=== PATIENT | female | born 1930 | race Caucasian/White ===

== ENCOUNTER 2018-05-14 16:04 | Inpatient (IN) | payer MEDICARE, OTHER ==
[2018-05-14] MEDS ORDERED: ACETAMINOPHEN 325 MG TAB (18:09)
[2018-05-14 18:22] LABS: ABNORMAL IP MESSAGE 1; HEMATOCRIT 22.4 % (37.0-47.0); MEAN CORPUSCULAR HGB CONC 29.5 g/dl (32.0-37.0); MEAN PLATELET VOLUME 9.9 fl (7.4-10.4); PLATELET COUNT 469 10^3/UL (140-415); RED BLOOD COUNT 2.87 10^6/ul (4.20-5.40); RETICULOCYTE COUNT # 0.052 X10^6 (0.020-0.110); RETICULOCYTE COUNT % 1.8 % (0.5-1.5); RETICULOCYTE RBC 2.87
[2018-05-14 18:34] LABS: ADD MAN DIFF? YES; HEMOGLOBIN 6.6 g/dl (12.0-16.0); POSITIVE DIFF @See below
[2018-05-14 18:41] LABS: IRON 15 ug/dl (35-150)
[2018-05-14 18:42] LABS: ALANINE AMINOTRANSFERASE 11 IU/L (13-69); ALBUMIN 4.6 g/dl (3.3-4.9); ALBUMIN/GLOBULIN RATIO 1.31; ALKALINE PHOSPHATASE 158 IU/L (42-121); ANION GAP 9 (5-13); ASPARTATE AMINO TRANSFERASE 25 IU/L (15-46); BILIRUBIN,INDIRECT 0.2 mg/dl (0-1.1); BILIRUBIN,TOTAL 0.2 mg/dl (0.2-1.3); BLOOD UREA NITROGEN 26 mg/dl (7-20); CALCIUM 9.5 mg/dl (8.4-10.2); CARBON DIOXIDE 29 mmol/L (21-31); CHLORIDE 104 mmol/L (97-110); CREATININE 1.23 mg/dl (0.44-1.00); GLUCOSE 100 mg/dl (70-220); INR 0.88; LACTATE DEHYDROGENASE 533 IU/L (313-618); POTASSIUM 4.3 mmol/L (3.5-5.1); PT RATIO 0.9; SODIUM 142 mmol/L (135-144); TOTAL PROTEIN 8.1 g/dl (6.1-8.1); URIC ACID 8.3 mg/dl (3.1-7.9)
[2018-05-14 18:43] LABS: PARTIAL THROMBOPLASTIN TIME 37.1 Sec (23.0-35.0)
[2018-05-14 18:50] LABS: % IRON SATURATION 3 % SAT (22-52); TOTAL IRON BINDING CAPACITY 507 ug/dl (241-421)
[2018-05-14] MEDS: ACETAMINOPHEN 325 MG TAB PO ×2 (18:50→21:14)
[2018-05-14 19:24] LABS: FERRITIN 6.2 ng/ml (11.1-264.0)
[2018-05-14 19:25] LABS: ANISOCYTOSIS 2+ (0-0); EOSINOPHILS % (M) 3 % (0-7); GIANT THROMBO% (M) 3 % (0-0); HYPOCHROMASIA 3+ (0-0); LYMPHOCYTES #M 1.1 10^3/ul (0.8-2.9); LYMPHOCYTES % (M) 17 % (15-51); MICROCYTOSIS 2+ (0-0); MONOCYTE #M 0.1 10^3/ul (0.3-0.9); MONOCYTES % (M) 2 % (0-11); PLATELET ESTIMATE NORMAL; POIKILOCYTOSIS 3+ (0-0); POLYCHROMASIA 2+ (0-0); SEGMENTED NEUTROPHILS (M) % 78 % (39-77); SMUDGE%M 3 % (0-0)
[2018-05-14 19:27] LABS: IMMUNOGLOBULIN A 239 mg/dl (70-400); IMMUNOGLOBULIN G 966 mg/dl (700-1600); IMMUNOGLOBULIN M 125 mg/dl (40-230)
[2018-05-14 20:56] LABS: ERYTHROCYTE SEDIMENTATION RATE 65 mm/Hr (0-30)
[2018-05-14] MEDS: DIPHENHYDRAMINE 25 MG CAP PO (21:13)
[2018-05-14] MEDS: ATORVASTATIN 40 MG TAB PO (21:14)
[2018-05-14] MEDS: LISINOPRIL 10 MG TAB PO (21:18)
[2018-05-15 00:46] LABS: IMMEDIATE SPIN CROSSMATCH 1 2
[2018-05-15] MEDS: PANTOPRAZOLE 40 MG INJ IV ×2 (05:55→17:12)
[2018-05-15 06:16] LABS: PROTEIN, TOTAL 7.4 g/dL (6.1-8.1)
[2018-05-15 06:21] LABS: ADD MAN DIFF? NO
[2018-05-15 06:30] LABS: BASOPHIL # 0.1 10^3/ul (0.0-0.1); BASOPHILS % 0.7 % (0.0-2.0); EOSINOPHILS # 0.1 10^3/ul (0.0-0.5); EOSINOPHILS % 1.7 % (0.0-7.0); HEMATOCRIT 27.1 % (37.0-47.0); HEMOGLOBIN 8.3 g/dl (12.0-16.0); LYMPHOCYTES # 2.4 10^3/ul (0.8-2.9); LYMPHOCYTES % 31.1 % (15.0-51.0); MEAN CORPUSCULAR HEMOGLOBIN 24.9 pg (29.0-33.0); MEAN CORPUSCULAR HGB CONC 30.6 g/dl (32.0-37.0); MEAN CORPUSCULAR VOLUME 81.4 fl (82.0-101.0); MEAN PLATELET VOLUME 9.8 fl (7.4-10.4); MONOCYTE # 0.8 10^3/ul (0.3-0.9); MONOCYTES % 10.4 % (0.0-11.0); NEUTROPHIL # 4.3 10^3/ul (1.6-7.5); NEUTROPHILS % 55.8 % (39.0-77.0); PLATELET COUNT 379 10^3/UL (140-415); RED BLOOD COUNT 3.33 10^6/ul (4.20-5.40); RED CELL DISTRIBUTION WIDTH 17.8 % (11.5-14.5)
[2018-05-15 06:30] LABS: WHITE BLOOD COUNT 7.6 10^3/ul (4.8-10.8)
[2018-05-15] MEDS ORDERED: FUROSEMIDE 40 MG TAB (07:50)
[2018-05-15] MEDS: LISINOPRIL 10 MG TAB PO ×2 (08:20→20:05)
[2018-05-15] MEDS: FUROSEMIDE 40 MG TAB PO (08:20)
[2018-05-15] MEDS: ACETAMINOPHEN 325 MG TAB PO ×2 (09:43→20:06)
[2018-05-15 12:51] LABS: OCCULT BLOOD STOOL NEGATIVE (NEGATIVE)
[2018-05-15 13:51] LABS: HAPTOGLOBIN 329 mg/dL (43-212)
[2018-05-15] MEDS: PEG/ELECTROLYTES 4L BTL PO (15:25)
[2018-05-15] MEDS: SOD FERRIC GLUC COMPLX 125 MG in SOD CHLORIDE 0.9% 100 ML IVPB (16:17)
[2018-05-15 17:41] LABS: ANA SCREEN POSITIVE (NEGATIVE)
[2018-05-15 19:56] LABS: ANA PATTERN SPECKLED; ANA TITER 1:40 titer
[2018-05-15] MEDS: ATORVASTATIN 40 MG TAB PO (20:05)
[2018-05-15 23:42] LABS: ALBUMIN 4.1 g/dL (3.8-4.8); ALPHA-1-GLOBULINS 0.4 g/dL (0.2-0.3); BETA 2 GLOBULINS 0.4 g/dL (0.2-0.5); BETA GLOBULINS 0.6 g/dL (0.4-0.6)
[2018-05-16 02:32] LABS: OCCULT BLOOD STOOL NEGATIVE (NEGATIVE)
[2018-05-16] MEDS: PANTOPRAZOLE 40 MG INJ IV ×2 (05:36→17:41)
[2018-05-16 06:48] LABS: ANION GAP 13 (5-13); BLOOD UREA NITROGEN 15 mg/dl (7-20); CALCIUM 9.5 mg/dl (8.4-10.2); CARBON DIOXIDE 28 mmol/L (21-31); CHLORIDE 103 mmol/L (97-110); CREATININE 0.79 mg/dl (0.44-1.00); GLUCOSE 96 mg/dl (70-220); POTASSIUM 3.9 mmol/L (3.5-5.1); SODIUM 144 mmol/L (135-144)
[2018-05-16] MEDS: FUROSEMIDE 40 MG TAB PO (08:15)
[2018-05-16] MEDS: LISINOPRIL 10 MG TAB PO ×2 (08:15→21:27)
[2018-05-16] MEDS: POTASSIUM CHLORIDE 10 MEQ in SOD CHLORIDE 0.9% 1,000 ML IV (09:51)
[2018-05-16] MEDS ORDERED: FENTAnyl 50 MCG/ML VIAL (13:25)
[2018-05-16] MEDS ORDERED: PROPOFOL 20 ML (13:25)
[2018-05-16] MEDS ORDERED: EPHEDrine 50 MG INJ (13:55)
[2018-05-16] MEDS: SOD FERRIC GLUC COMPLX 125 MG in SOD CHLORIDE 0.9% 100 ML IVPB (17:45)
[2018-05-16] MEDS: ATORVASTATIN 40 MG TAB PO (21:27)
[2018-05-16] MEDS: ACETAMINOPHEN 325 MG TAB PO (21:49)
[2018-05-17] MEDS: hydrALAzine 20 MG INJ IV (03:34)
[2018-05-17] MEDS: PANTOPRAZOLE 40 MG INJ IV ×2 (06:02→17:18)
[2018-05-17] MEDS: FUROSEMIDE 40 MG TAB PO (08:31)
[2018-05-17] MEDS: LISINOPRIL 10 MG TAB PO ×2 (08:31→20:44)
[2018-05-17] MEDS: SOD FERRIC GLUC COMPLX 125 MG in SOD CHLORIDE 0.9% 100 ML IVPB (17:18)
[2018-05-17] MEDS: ATORVASTATIN 40 MG TAB PO (20:44)
[2018-05-18] MEDS: PANTOPRAZOLE 40 MG INJ IV ×2 (05:41→17:27)
[2018-05-18] MEDS: FUROSEMIDE 40 MG TAB PO (08:36)
[2018-05-18] MEDS: LISINOPRIL 10 MG TAB PO ×2 (08:36→21:01)
[2018-05-18 12:43] LABS: OCCULT BLOOD STOOL NEGATIVE (NEGATIVE)
[2018-05-18 15:00] LABS: ADD MAN DIFF? NO
[2018-05-18 15:03] LABS: BASOPHILS % 0.2 % (0.0-2.0); EOSINOPHILS # 0.1 10^3/ul (0.0-0.5); EOSINOPHILS % 0.9 % (0.0-7.0); HEMATOCRIT 30.7 % (37.0-47.0); HEMOGLOBIN 9.3 g/dl (12.0-16.0); LYMPHOCYTES # 1.4 10^3/ul (0.8-2.9); LYMPHOCYTES % 14.7 % (15.0-51.0); MEAN CORPUSCULAR HEMOGLOBIN 24.6 pg (29.0-33.0); MEAN CORPUSCULAR HGB CONC 30.3 g/dl (32.0-37.0); MEAN CORPUSCULAR VOLUME 81.2 fl (82.0-101.0); MEAN PLATELET VOLUME 9.7 fl (7.4-10.4); MONOCYTE # 0.9 10^3/ul (0.3-0.9); MONOCYTES % 9.6 % (0.0-11.0); NEUTROPHIL # 7.2 10^3/ul (1.6-7.5); NEUTROPHILS % 74.2 % (39.0-77.0); PLATELET COUNT 394 10^3/UL (140-415); RED BLOOD COUNT 3.78 10^6/ul (4.20-5.40); RED CELL DISTRIBUTION WIDTH 19.2 % (11.5-14.5)
[2018-05-18 15:03] LABS: WHITE BLOOD COUNT 9.7 10^3/ul (4.8-10.8)
[2018-05-18] MEDS: SOD FERRIC GLUC COMPLX 125 MG in SOD CHLORIDE 0.9% 100 ML IVPB (16:24)
[2018-05-18] MEDS: ACETAMINOPHEN 325 MG TAB PO (19:17)
[2018-05-18 20:10] LABS: RETICULOCYTE COUNT # 0.061 X10^6 (0.020-0.110); RETICULOCYTE COUNT % 1.6 % (0.5-1.5)
[2018-05-18 20:10] LABS: RETICULOCYTE RBC 3.74
[2018-05-18] MEDS: ATORVASTATIN 40 MG TAB PO (21:01)
[2018-05-19] MEDS: hydrALAzine 20 MG INJ IV (02:46)
[2018-05-19] MEDS: PANTOPRAZOLE 40 MG INJ IV ×2 (05:58→17:21)
[2018-05-19 06:03] LABS: ADD MAN DIFF? NO
[2018-05-19 06:15] LABS: BASOPHILS % 0.4 % (0.0-2.0); EOSINOPHILS # 0.1 10^3/ul (0.0-0.5); EOSINOPHILS % 0.8 % (0.0-7.0); HEMOGLOBIN 9.6 g/dl (12.0-16.0); LYMPHOCYTES # 1.4 10^3/ul (0.8-2.9); LYMPHOCYTES % 12.6 % (15.0-51.0); MEAN CORPUSCULAR HEMOGLOBIN 25.1 pg (29.0-33.0); MEAN CORPUSCULAR VOLUME 80.9 fl (82.0-101.0); MEAN PLATELET VOLUME 9.7 fl (7.4-10.4); MONOCYTE # 1.2 10^3/ul (0.3-0.9); MONOCYTES % 11.1 % (0.0-11.0); NEUTROPHIL # 8.3 10^3/ul (1.6-7.5); NEUTROPHILS % 74.5 % (39.0-77.0); PLATELET COUNT 361 10^3/UL (140-415); RED BLOOD COUNT 3.83 10^6/ul (4.20-5.40); RED CELL DISTRIBUTION WIDTH 19.7 % (11.5-14.5)
[2018-05-19 06:15] LABS: WHITE BLOOD COUNT 11.1 10^3/ul (4.8-10.8)
[2018-05-19 06:51] LABS: ALANINE AMINOTRANSFERASE 14 IU/L (13-69); ALBUMIN/GLOBULIN RATIO 1.21; ALKALINE PHOSPHATASE 162 IU/L (42-121); AMYLASE 103 U/L (11-123); ANION GAP 8 (5-13); ASPARTATE AMINO TRANSFERASE 34 IU/L (15-46); BILIRUBIN,INDIRECT 0.5 mg/dl (0-1.1); BILIRUBIN,TOTAL 0.5 mg/dl (0.2-1.3); BLOOD UREA NITROGEN 16 mg/dl (7-20); CALCIUM 9.5 mg/dl (8.4-10.2); CARBON DIOXIDE 27 mmol/L (21-31); CHLORIDE 106 mmol/L (97-110); CREATININE 0.75 mg/dl (0.44-1.00); GLUCOSE 109 mg/dl (70-220); POTASSIUM 3.5 mmol/L (3.5-5.1); SODIUM 141 mmol/L (135-144); TOTAL PROTEIN 7.3 g/dl (6.1-8.1)
[2018-05-19] MEDS: LISINOPRIL 10 MG TAB PO ×2 (08:17→20:34)
[2018-05-19] MEDS: FUROSEMIDE 40 MG TAB PO (08:17)
[2018-05-19] MEDS: SOD FERRIC GLUC COMPLX 125 MG in SOD CHLORIDE 0.9% 100 ML IVPB (16:45)
[2018-05-19] MEDS: ATORVASTATIN 40 MG TAB PO (20:33)
[2018-05-20] MEDS: ACETAMINOPHEN 325 MG TAB PO (04:31)
[2018-05-20] MEDS: PANTOPRAZOLE 40 MG INJ IV ×2 (05:54→17:36)
[2018-05-20 06:59] LABS: ADD MAN DIFF? NO
[2018-05-20 07:07] LABS: WHITE BLOOD COUNT 10.5 10^3/ul (4.8-10.8)
[2018-05-20 07:07] LABS: BASOPHILS % 0.2 % (0.0-2.0); EOSINOPHILS # 0.1 10^3/ul (0.0-0.5); EOSINOPHILS % 0.6 % (0.0-7.0); HEMATOCRIT 30.3 % (37.0-47.0); HEMOGLOBIN 9.3 g/dl (12.0-16.0); LYMPHOCYTES # 1.8 10^3/ul (0.8-2.9); LYMPHOCYTES % 17.3 % (15.0-51.0); MEAN CORPUSCULAR HEMOGLOBIN 25.1 pg (29.0-33.0); MEAN CORPUSCULAR HGB CONC 30.7 g/dl (32.0-37.0); MEAN CORPUSCULAR VOLUME 81.7 fl (82.0-101.0); MEAN PLATELET VOLUME 9.5 fl (7.4-10.4); MONOCYTE # 1.3 10^3/ul (0.3-0.9); MONOCYTES % 12.5 % (0.0-11.0); NEUTROPHIL # 7.3 10^3/ul (1.6-7.5); PLATELET COUNT 327 10^3/UL (140-415); RED BLOOD COUNT 3.71 10^6/ul (4.20-5.40); RED CELL DISTRIBUTION WIDTH 20.3 % (11.5-14.5)
[2018-05-20 07:31] LABS: IRON 77 ug/dl (35-150)
[2018-05-20 07:40] LABS: % IRON SATURATION 20 % SAT (22-52); TOTAL IRON BINDING CAPACITY 387 ug/dl (241-421)
[2018-05-20] MEDS: FUROSEMIDE 40 MG TAB PO (08:07)
[2018-05-20] MEDS: LISINOPRIL 10 MG TAB PO ×2 (08:07→21:32)
[2018-05-20] MEDS: SOD FERRIC GLUC COMPLX 125 MG in SOD CHLORIDE 0.9% 100 ML IVPB (16:48)
[2018-05-20] MEDS: ATORVASTATIN 40 MG TAB PO (21:32)
[2018-05-21] MEDS: PANTOPRAZOLE 40 MG INJ IV (05:06)
[2018-05-21] MEDS: FUROSEMIDE 40 MG TAB PO (08:27)
[2018-05-21] MEDS: LISINOPRIL 10 MG TAB PO (08:28)
== END 2018-05-21 12:04 | disposition home or self-care (01) | DRG 382 ==
LOC: REC 16:04 → PP2 16:17
PROC: 0DB58ZX Excision of Esophagus, Via Natural or Artificial Opening Endoscopic, Diagnostic (ICD-10-PCS; principal; 2018-05-16 12:50)
PROC: 0DB68ZX Excision of Stomach, Via Natural or Artificial Opening Endoscopic, Diagnostic (ICD-10-PCS; 2018-05-16 12:50)
PROC: 0DBM8ZX Excision of Descending Colon, Via Natural or Artificial Opening Endoscopic, Diagnostic (ICD-10-PCS; 2018-05-16 12:50)
PROC: 30233N1 Transfusion of Nonautologous Red Blood Cells into Peripheral Vein, Percutaneous Approach (ICD-10-PCS; 2018-05-16 12:50)
DX: K22.11 Ulcer of esophagus with bleeding (principal); D50.9 Iron deficiency anemia, unspecified; I11.0 Hypertensive heart disease with heart failure; I50.9 Heart failure, unspecified; I25.10 Atherosclerotic heart disease of native coronary artery without angina pectoris; K21.0 Gastro-esophageal reflux disease with esophagitis; K44.9 Diaphragmatic hernia without obstruction or gangrene; K57.30 Diverticulosis of large intestine without perforation or abscess without bleeding; K63.5 Polyp of colon; K64.8 Other hemorrhoids; K64.4 Residual hemorrhoidal skin tags; E66.9 Obesity, unspecified; Z68.28 Body mass index [BMI] 28.0-28.9, adult; Z98.61 Coronary angioplasty status; Z87.891 Personal history of nicotine dependence
CPT/HCPCS: 36430; 71045; 76705; 80048; 80053; 82150; 82270; 82728; 82784; 83010; 83540; 83615; 83921; 84155; 84165; 84443; 84560; 85025; 85045; 85610; 85651; 85730; 86038; 86320; 86850; 86900; 86901; 86920; 88305; 88312; 88313; 93005; G0378

== ENCOUNTER 2018-08-03 17:45 | Inpatient (IN) | payer MEDICARE, OTHER ==
[2018-08-03] MEDS: DEXTROSE 5%-0.45% NACL 1,000 ML IV (18:26)
[2018-08-03] MEDS: PIPER-TAZO 3.375 GM IV (PMX) 100 ML IVPB ×2 (18:31→23:56)
[2018-08-03 18:40] LABS: ADD MAN DIFF? NO
[2018-08-03 18:49] LABS: WHITE BLOOD COUNT 12.8 10^3/ul (4.8-10.8)
[2018-08-03 18:49] LABS: ABNORMAL IP MESSAGE 1; BASOPHILS % 0.2 % (0.0-2.0); HEMATOCRIT 32.3 % (37.0-47.0); HEMOGLOBIN 9.9 g/dl (12.0-16.0); LYMPHOCYTES # 1.8 10^3/ul (0.8-2.9); LYMPHOCYTES % 13.9 % (15.0-51.0); MEAN CORPUSCULAR HEMOGLOBIN 26.4 pg (29.0-33.0); MEAN CORPUSCULAR HGB CONC 30.7 g/dl (32.0-37.0); MEAN CORPUSCULAR VOLUME 86.1 fl (82.0-101.0); MEAN PLATELET VOLUME 11.2 fl (7.4-10.4); MONOCYTE # 0.9 10^3/ul (0.3-0.9); MONOCYTES % 6.9 % (0.0-11.0); NEUTROPHIL # 10.1 10^3/ul (1.6-7.5); NEUTROPHILS % 78.6 % (39.0-77.0); PLATELET COUNT 498 10^3/UL (140-415); RED BLOOD COUNT 3.75 10^6/ul (4.20-5.40); RED CELL DISTRIBUTION WIDTH 25.8 % (11.5-14.5)
[2018-08-03 18:53] LABS: POSITIVE DIFF @See below
[2018-08-03 19:10] LABS: PROTIME 13.3 Sec (11.9-14.9)
[2018-08-03 19:11] LABS: PARTIAL THROMBOPLASTIN TIME 48.9 Sec (23.0-35.0)
[2018-08-03 19:40] LABS: ALBUMIN 3.6 g/dl (3.3-4.9); ALBUMIN/GLOBULIN RATIO 0.87; ALKALINE PHOSPHATASE 185 IU/L (42-121); ANION GAP 9 (5-13); ASPARTATE AMINO TRANSFERASE 18 IU/L (15-46); BILIRUBIN,INDIRECT 0.1 mg/dl (0-1.1); BILIRUBIN,TOTAL 0.1 mg/dl (0.2-1.3); BLOOD UREA NITROGEN 22 mg/dl (7-20); CALCIUM 9.3 mg/dl (8.4-10.2); CARBON DIOXIDE 36 mmol/L (21-31); CHLORIDE 97 mmol/L (97-110); CREATININE 1.29 mg/dl (0.44-1.00); GLUCOSE 124 mg/dl (70-220); POTASSIUM 3.5 mmol/L (3.5-5.1); SODIUM 142 mmol/L (135-144); TOTAL PROTEIN 7.7 g/dl (6.1-8.1)
[2018-08-03 19:42] LABS: ALANINE AMINOTRANSFERASE < 6 IU/L (13-69)
[2018-08-03] MEDS: IOHEXOL 300MG/ML 150 ML BTL (23:42)
[2018-08-03] MEDS: SOD CHLORIDE 0.9% 100 ML (23:42)
[2018-08-04] MEDS: LEVALBUTEROL (NEB) 0.63 MG/3 ML AMP HHN ×4 (04:16→23:12)
[2018-08-04 05:40] LABS: ADD MAN DIFF? NO
[2018-08-04 05:43] LABS: ABNORMAL IP MESSAGE 1; BASOPHILS % 0.2 % (0.0-2.0); EOSINOPHILS % 0.2 % (0.0-7.0); HEMATOCRIT 27.6 % (37.0-47.0); HEMOGLOBIN 8.5 g/dl (12.0-16.0); LYMPHOCYTES # 1.4 10^3/ul (0.8-2.9); LYMPHOCYTES % 11.1 % (15.0-51.0); MEAN CORPUSCULAR HEMOGLOBIN 26.1 pg (29.0-33.0); MEAN CORPUSCULAR HGB CONC 30.8 g/dl (32.0-37.0); MEAN CORPUSCULAR VOLUME 84.7 fl (82.0-101.0); MONOCYTE # 0.8 10^3/ul (0.3-0.9); MONOCYTES % 6.5 % (0.0-11.0); NEUTROPHILS % 81.5 % (39.0-77.0); PLATELET COUNT 508 10^3/UL (140-415); RED BLOOD COUNT 3.26 10^6/ul (4.20-5.40); RED CELL DISTRIBUTION WIDTH 24.2 % (11.5-14.5)
[2018-08-04 05:43] LABS: WHITE BLOOD COUNT 12.3 10^3/ul (4.8-10.8)
[2018-08-04 05:47] LABS: POSITIVE DIFF @See below
[2018-08-04 06:14] LABS: ANION GAP 11 (5-13); BLOOD UREA NITROGEN 18 mg/dl (7-20); CALCIUM 8.6 mg/dl (8.4-10.2); CARBON DIOXIDE 32 mmol/L (21-31); CHLORIDE 97 mmol/L (97-110); CREATININE 1.07 mg/dl (0.44-1.00); GLUCOSE 144 mg/dl (70-220); SODIUM 140 mmol/L (135-144)
[2018-08-04] MEDS: DEXTROSE 5%-0.45% NACL 1,000 ML IV (06:19)
[2018-08-04] MEDS: PIPER-TAZO 3.375 GM IV (PMX) 100 ML IVPB ×3 (06:19→18:21)
[2018-08-04] MEDS: PANTOPRAZOLE (EC) 40 MG TAB PO (06:23)
[2018-08-04 06:40] LABS: POTASSIUM 2.9 mmol/L (3.5-5.1)
[2018-08-04 07:14] LABS: ERYTHROCYTE SEDIMENTATION RATE 135 mm/Hr (0-30)
[2018-08-04] MEDS: LISINOPRIL 10 MG TAB PO ×2 (08:42→20:34)
[2018-08-04] MEDS: FERROUS SULFATE (EC) 325 MG TAB PO ×2 (08:42→20:34)
[2018-08-04] MEDS: POTASSIUM CHLORIDE (SR) 20 MEQ TAB PO ×2 (08:42→18:22)
[2018-08-04 11:34] LABS: POTASSIUM 3.2 mmol/L (3.5-5.1)
[2018-08-04] MEDS: D5-NS + KCL 20 MEQ 1,000 ML IV (18:22)
[2018-08-04] MEDS: ATORVASTATIN 40 MG TAB PO (20:33)
[2018-08-05] MEDS: PIPER-TAZO 3.375 GM IV (PMX) 100 ML IVPB ×4 (06:38→17:21)
[2018-08-05] MEDS: PANTOPRAZOLE (EC) 40 MG TAB PO (06:38)
[2018-08-05] MEDS: LEVALBUTEROL (NEB) 0.63 MG/3 ML AMP HHN ×3 (08:00→23:11)
[2018-08-05 08:24] LABS: IRON 26 ug/dl (35-150)
[2018-08-05 08:33] LABS: % IRON SATURATION 16 % SAT (22-52); TOTAL IRON BINDING CAPACITY 162 ug/dl (241-421)
[2018-08-05 08:56] LABS: PARTIAL THROMBOPLASTIN TIME 54.7 Sec (23.0-35.0)
[2018-08-05] MEDS: FERROUS SULFATE (EC) 325 MG TAB PO ×2 (09:01→20:27)
[2018-08-05] MEDS: FUROSEMIDE 20 MG TAB PO (09:02)
[2018-08-05] MEDS: LISINOPRIL 10 MG TAB PO ×2 (09:03→20:27)
[2018-08-05 09:48] LABS: 50/50 PTT IMMED 47.8 Sec
[2018-08-05] MEDS: D5-NS + KCL 20 MEQ 1,000 ML IV ×2 (12:30→15:50)
[2018-08-05 16:38] LABS: ADD UMIC YES; UR ASCORBIC ACID NEGATIVE (NEGATIVE); UR BILIRUBIN (Dip) NEGATIVE (NEGATIVE); UR BLOOD (Dip) 1+ mg/dL (NEGATIVE); UR CLARITY CLEAR (CLEAR); UR COLOR STRAW (YELLOW); UR GLUCOSE (Dip) NEGATIVE (NEGATIVE); UR KETONES (Dip) NEGATIVE (NEGATIVE); UR LEUKOCYTE ESTERASE (Dip) NEGATIVE Leu/ul (NEGATIVE); UR NITRITE (Dip) NEGATIVE (NEGATIVE); UR RBC 0 /HPF (0-5); UR SPECIFIC GRAVITY (Dip) 1.012 (1.003-1.030); UR TOTAL PROTEIN (Dip) NEGATIVE (NEGATIVE); UR UROBILINOGEN (Dip) NEGATIVE (NEGATIVE); UR WBC 2 /HPF (0-5)
[2018-08-05 17:27] LABS: OCCULT BLOOD STOOL NEGATIVE (NEGATIVE)
[2018-08-05] MEDS: ATORVASTATIN 40 MG TAB PO (20:27)
[2018-08-06] MEDS: PIPER-TAZO 3.375 GM IV (PMX) 100 ML IVPB ×4 (00:20→17:19)
[2018-08-06 05:50] LABS: ADD MAN DIFF? NO
[2018-08-06 05:58] LABS: ABNORMAL IP MESSAGE 1; BASOPHILS % 0.1 % (0.0-2.0); EOSINOPHILS # 0.1 10^3/ul (0.0-0.5); EOSINOPHILS % 1.4 % (0.0-7.0); HEMATOCRIT 25.7 % (37.0-47.0); LYMPHOCYTES # 1.6 10^3/ul (0.8-2.9); LYMPHOCYTES % 20.5 % (15.0-51.0); MEAN CORPUSCULAR HEMOGLOBIN 26.4 pg (29.0-33.0); MEAN CORPUSCULAR HGB CONC 31.1 g/dl (32.0-37.0); MEAN CORPUSCULAR VOLUME 84.8 fl (82.0-101.0); MEAN PLATELET VOLUME 9.2 fl (7.4-10.4); MONOCYTE # 0.7 10^3/ul (0.3-0.9); MONOCYTES % 8.1 % (0.0-11.0); NEUTROPHIL # 5.6 10^3/ul (1.6-7.5); NEUTROPHILS % 69.5 % (39.0-77.0); PLATELET COUNT 488 10^3/UL (140-415); RED BLOOD COUNT 3.03 10^6/ul (4.20-5.40); RED CELL DISTRIBUTION WIDTH 24.6 % (11.5-14.5)
[2018-08-06] MEDS: PANTOPRAZOLE (EC) 40 MG TAB PO (06:05)
[2018-08-06 06:13] LABS: POSITIVE DIFF @See below
[2018-08-06 06:23] LABS: ANION GAP 8 (5-13); BLOOD UREA NITROGEN 5 mg/dl (7-20); CALCIUM 8.7 mg/dl (8.4-10.2); CARBON DIOXIDE 30 mmol/L (21-31); CHLORIDE 104 mmol/L (97-110); CREATININE 0.73 mg/dl (0.44-1.00); GLUCOSE 116 mg/dl (70-220); POTASSIUM 3.4 mmol/L (3.5-5.1); SODIUM 142 mmol/L (135-144)
[2018-08-06] MEDS: LEVALBUTEROL (NEB) 0.63 MG/3 ML AMP HHN ×2 (07:52→16:00)
[2018-08-06] MEDS: FERROUS SULFATE (EC) 325 MG TAB PO ×2 (08:22→20:23)
[2018-08-06] MEDS: LISINOPRIL 10 MG TAB PO ×2 (08:22→20:23)
[2018-08-06] MEDS: FUROSEMIDE 20 MG TAB PO (08:22)
[2018-08-06 12:22] LABS: DRVVT CONFIRMATION NEGATIVE (NEGATIVE); HEXAGONAL PHASE CONFIRMATION WEAKLY POSITIVE (NEGATIVE); THROMBIN CLOTTING TIME 18 sec (13-19)
[2018-08-06] MEDS: POTASSIUM CHLORIDE (SR) 20 MEQ TAB PO (17:19)
[2018-08-06] MEDS: ATORVASTATIN 40 MG TAB PO (20:22)
[2018-08-07] MEDS: PIPER-TAZO 3.375 GM IV (PMX) 100 ML IVPB ×4 (00:30→17:29)
[2018-08-07 05:52] LABS: ADD MAN DIFF? NO
[2018-08-07 06:02] LABS: WHITE BLOOD COUNT 9.2 10^3/ul (4.8-10.8)
[2018-08-07 06:02] LABS: ABNORMAL IP MESSAGE 1; BASOPHILS % 0.2 % (0.0-2.0); EOSINOPHILS # 0.1 10^3/ul (0.0-0.5); EOSINOPHILS % 1.3 % (0.0-7.0); HEMATOCRIT 26.9 % (37.0-47.0); HEMOGLOBIN 8.3 g/dl (12.0-16.0); LYMPHOCYTES # 1.8 10^3/ul (0.8-2.9); LYMPHOCYTES % 19.5 % (15.0-51.0); MEAN CORPUSCULAR HEMOGLOBIN 26.9 pg (29.0-33.0); MEAN CORPUSCULAR HGB CONC 30.9 g/dl (32.0-37.0); MEAN CORPUSCULAR VOLUME 87.3 fl (82.0-101.0); MONOCYTE # 0.7 10^3/ul (0.3-0.9); MONOCYTES % 8.1 % (0.0-11.0); NEUTROPHIL # 6.5 10^3/ul (1.6-7.5); NEUTROPHILS % 70.5 % (39.0-77.0); PLATELET COUNT 470 10^3/UL (140-415); RED BLOOD COUNT 3.08 10^6/ul (4.20-5.40); RED CELL DISTRIBUTION WIDTH 23.9 % (11.5-14.5)
[2018-08-07] MEDS: PANTOPRAZOLE (EC) 40 MG TAB PO (06:02)
[2018-08-07 06:18] LABS: POSITIVE DIFF @See below
[2018-08-07 06:57] LABS: ANION GAP 10 (5-13); BLOOD UREA NITROGEN 5 mg/dl (7-20); CALCIUM 8.7 mg/dl (8.4-10.2); CARBON DIOXIDE 29 mmol/L (21-31); CHLORIDE 102 mmol/L (97-110); CREATININE 0.69 mg/dl (0.44-1.00); GLUCOSE 118 mg/dl (70-220); POTASSIUM 3.5 mmol/L (3.5-5.1); SODIUM 141 mmol/L (135-144)
[2018-08-07 07:38] LABS: ALANINE AMINOTRANSFERASE 16 IU/L (13-69); ALBUMIN 2.6 g/dl (3.3-4.9); ALBUMIN/GLOBULIN RATIO 0.83; ALKALINE PHOSPHATASE 165 IU/L (42-121); ANION GAP 5 (5-13); ASPARTATE AMINO TRANSFERASE 21 IU/L (15-46); BLOOD UREA NITROGEN 4 mg/dl (7-20); CALCIUM 8.6 mg/dl (8.4-10.2); CARBON DIOXIDE 31 mmol/L (21-31); CHLORIDE 105 mmol/L (97-110); CREATININE 0.69 mg/dl (0.44-1.00); GLUCOSE 111 mg/dl (70-220); SODIUM 141 mmol/L (135-144); TOTAL PROTEIN 5.7 g/dl (6.1-8.1)
[2018-08-07] MEDS: LEVALBUTEROL (NEB) 0.63 MG/3 ML AMP HHN ×4 (08:00→17:16)
[2018-08-07] MEDS: LISINOPRIL 10 MG TAB PO ×2 (08:37→21:14)
[2018-08-07] MEDS: FUROSEMIDE 20 MG TAB PO (08:37)
[2018-08-07] MEDS: FERROUS SULFATE (EC) 325 MG TAB PO ×2 (08:37→21:14)
[2018-08-07] MEDS: POTASSIUM CHLORIDE (SR) 10 MEQ TAB PO (09:58)
[2018-08-07 12:54] LABS: FLUID TYPE PARACENTESIS FLUID
[2018-08-07 13:01] LABS: FLUID TYPE PARACENTESIS FLUID
[2018-08-07 13:10] LABS: FLUID GLUCOSE 103 mg/dl; FLUID LD 854 U/L
[2018-08-07 13:11] LABS: ANA SCREEN NEGATIVE (NEGATIVE); FLUID TOTAL PROTEIN 4.1 g/dl
[2018-08-07] MEDS: SOD FERRIC GLUC COMPLX 125 MG in SOD CHLORIDE 0.9% 100 ML IVPB (13:22)
[2018-08-07] MEDS: EPOETIN 10000 UNITS/1 ML INJ (ESRD) SC (17:30)
[2018-08-07 19:22] LABS: ERYTHROPOIETIN 40.6 mIU/mL (2.6-18.5)
[2018-08-07] MEDS: ATORVASTATIN 40 MG TAB PO (21:14)
[2018-08-07] MEDS: DOCUSATE SODIUM 100 MG CAP PO (21:14)
[2018-08-08] MEDS: LEVALBUTEROL (NEB) 0.63 MG/3 ML AMP HHN ×3 (00:04→16:00)
[2018-08-08] MEDS: PIPER-TAZO 3.375 GM IV (PMX) 100 ML IVPB ×4 (00:24→17:22)
[2018-08-08] MEDS: PANTOPRAZOLE (EC) 40 MG TAB PO (06:17)
[2018-08-08 07:40] LABS: FLD MN% 14.9 %; FLD PMN% 85.1 %; FLD RBC 2000 /uL
[2018-08-08 08:13] LABS: FLD CLARITY SLIGHTLY CLOUDY; FLD WBC 10676 /cmm
[2018-08-08 08:13] LABS: FLD TYPE THORACENTESIS
[2018-08-08 08:14] LABS: FLD COLOR YELLOW
[2018-08-08] MEDS: FUROSEMIDE 20 MG TAB PO (08:53)
[2018-08-08] MEDS: FERROUS SULFATE (EC) 325 MG TAB PO ×2 (08:53→21:02)
[2018-08-08] MEDS: POTASSIUM CHLORIDE (SR) 20 MEQ TAB PO (08:53)
[2018-08-08] MEDS: LISINOPRIL 10 MG TAB PO ×2 (08:54→21:05)
[2018-08-08 08:57] LABS: LACTATE DEHYDROGENASE 382 IU/L (313-618)
[2018-08-08 10:51] LABS: PROCALCITONIN 0.11 ng/mL (<0.10)
[2018-08-08] MEDS: ENOXAPARIN 30 MG/0.3 ML SYG SC (11:34)
[2018-08-08 11:36] LABS: NIL 0.02 IU/mL; QUANTIFERON(R)-TB GOLD INDETERMINATE (NEGATIVE); TB-NIL 0.02 IU/mL; TB2-NIL 0.01 IU/mL
[2018-08-08] MEDS: SOD FERRIC GLUC COMPLX 125 MG in SOD CHLORIDE 0.9% 100 ML IVPB (12:55)
[2018-08-08] MEDS: AMLODIPINE 2.5 MG TAB PO (13:01)
[2018-08-08 17:46] LABS: DRVVT CONFIRMATION NEGATIVE (NEGATIVE); HEXAGONAL PHASE CONFIRMATION NEGATIVE (NEGATIVE)
[2018-08-08] MEDS: ATORVASTATIN 40 MG TAB PO (21:02)
[2018-08-08] MEDS: DOCUSATE SODIUM 100 MG CAP PO (21:02)
[2018-08-09] MEDS: PIPER-TAZO 3.375 GM IV (PMX) 100 ML IVPB ×4 (00:41→17:37)
[2018-08-09] MEDS: PANTOPRAZOLE (EC) 40 MG TAB PO (05:55)
[2018-08-09] MEDS: LEVALBUTEROL (NEB) 0.63 MG/3 ML AMP HHN ×4 (08:00→23:28)
[2018-08-09] MEDS: FERROUS SULFATE (EC) 325 MG TAB PO ×2 (08:43→20:21)
[2018-08-09] MEDS: LISINOPRIL 10 MG TAB PO ×2 (08:43→20:21)
[2018-08-09] MEDS: FUROSEMIDE 20 MG TAB PO (08:43)
[2018-08-09] MEDS: AMLODIPINE 2.5 MG TAB PO (08:44)
[2018-08-09] MEDS: ENOXAPARIN 30 MG/0.3 ML SYG SC (08:49)
[2018-08-09] MEDS: POTASSIUM CHLORIDE (SR) 20 MEQ TAB PO (08:50)
[2018-08-09 09:19] LABS: ADD MAN DIFF? NO
[2018-08-09 09:22] LABS: ABNORMAL IP MESSAGE 1; BASOPHILS % 0.2 % (0.0-2.0); EOSINOPHILS # 0.1 10^3/ul (0.0-0.5); HEMATOCRIT 27.4 % (37.0-47.0); HEMOGLOBIN 8.3 g/dl (12.0-16.0); LYMPHOCYTES # 1.6 10^3/ul (0.8-2.9); LYMPHOCYTES % 16.7 % (15.0-51.0); MEAN CORPUSCULAR HEMOGLOBIN 26.9 pg (29.0-33.0); MEAN CORPUSCULAR HGB CONC 30.3 g/dl (32.0-37.0); MEAN CORPUSCULAR VOLUME 88.7 fl (82.0-101.0); MEAN PLATELET VOLUME 8.7 fl (7.4-10.4); MONOCYTE # 0.6 10^3/ul (0.3-0.9); NEUTROPHIL # 7.3 10^3/ul (1.6-7.5); NEUTROPHILS % 75.3 % (39.0-77.0); PLATELET COUNT 465 10^3/UL (140-415); RED BLOOD COUNT 3.09 10^6/ul (4.20-5.40); RED CELL DISTRIBUTION WIDTH 23.9 % (11.5-14.5)
[2018-08-09 09:22] LABS: WHITE BLOOD COUNT 9.7 10^3/ul (4.8-10.8)
[2018-08-09 09:24] LABS: POSITIVE DIFF @See below
[2018-08-09] MEDS: SOD FERRIC GLUC COMPLX 125 MG in SOD CHLORIDE 0.9% 100 ML IVPB (12:49)
[2018-08-09 15:46] LABS: CARDIOLIPIN AB - IGA <11 APL; CARDIOLIPIN AB - IGG <14 GPL; CARDIOLIPIN AB - IGM <12 MPL
[2018-08-09] MEDS: ATORVASTATIN 40 MG TAB PO (20:20)
[2018-08-09] MEDS: DOCUSATE SODIUM 100 MG CAP PO (20:21)
[2018-08-10] MEDS: PIPER-TAZO 3.375 GM IV (PMX) 100 ML IVPB ×2 (00:05→05:55)
[2018-08-10 05:18] LABS: ADD MAN DIFF? NO
[2018-08-10 05:40] LABS: ABNORMAL IP MESSAGE 1; BASOPHILS % 0.3 % (0.0-2.0); EOSINOPHILS # 0.1 10^3/ul (0.0-0.5); EOSINOPHILS % 1.1 % (0.0-7.0); HEMATOCRIT 26.2 % (37.0-47.0); HEMOGLOBIN 8.2 g/dl (12.0-16.0); LYMPHOCYTES # 1.9 10^3/ul (0.8-2.9); LYMPHOCYTES % 20.9 % (15.0-51.0); MEAN CORPUSCULAR HEMOGLOBIN 27.4 pg (29.0-33.0); MEAN CORPUSCULAR HGB CONC 31.3 g/dl (32.0-37.0); MEAN CORPUSCULAR VOLUME 87.6 fl (82.0-101.0); MONOCYTE # 0.6 10^3/ul (0.3-0.9); MONOCYTES % 7.2 % (0.0-11.0); NEUTROPHIL # 6.2 10^3/ul (1.6-7.5); NEUTROPHILS % 69.7 % (39.0-77.0); PLATELET COUNT 477 10^3/UL (140-415); RED BLOOD COUNT 2.99 10^6/ul (4.20-5.40); RED CELL DISTRIBUTION WIDTH 23.9 % (11.5-14.5)
[2018-08-10] MEDS: PANTOPRAZOLE (EC) 40 MG TAB PO (05:55)
[2018-08-10 05:59] LABS: POSITIVE DIFF @See below
[2018-08-10] MEDS: AMLODIPINE 2.5 MG TAB PO (08:26)
[2018-08-10] MEDS: AMOXICILLIN/CLAV 875 MG TAB PO ×2 (08:26→21:02)
[2018-08-10] MEDS: LISINOPRIL 10 MG TAB PO ×2 (08:26→21:02)
[2018-08-10] MEDS: POTASSIUM CHLORIDE (SR) 20 MEQ TAB PO (08:27)
[2018-08-10] MEDS: FERROUS SULFATE (EC) 325 MG TAB PO ×2 (08:27→21:02)
[2018-08-10] MEDS: FUROSEMIDE 20 MG TAB PO (08:28)
[2018-08-10] MEDS: ENOXAPARIN 30 MG/0.3 ML SYG SC (09:20)
[2018-08-10] MEDS: LEVALBUTEROL (NEB) 0.63 MG/3 ML AMP HHN ×2 (09:22→16:00)
[2018-08-10 14:05] LABS: OCCULT BLOOD STOOL POSITIVE (NEGATIVE)
[2018-08-10] MEDS: EPOETIN 10000 UNITS/1 ML INJ (ESRD) SC (17:52)
[2018-08-10] MEDS: ATORVASTATIN 40 MG TAB PO (21:01)
[2018-08-10] MEDS: DOCUSATE SODIUM 100 MG CAP PO (21:02)
[2018-08-11 06:06] LABS: ADD MAN DIFF? NO
[2018-08-11 06:09] LABS: WHITE BLOOD COUNT 9.2 10^3/ul (4.8-10.8)
[2018-08-11 06:09] LABS: ABNORMAL IP MESSAGE 1; BASOPHILS % 0.2 % (0.0-2.0); EOSINOPHILS # 0.1 10^3/ul (0.0-0.5); EOSINOPHILS % 0.9 % (0.0-7.0); HEMATOCRIT 24.8 % (37.0-47.0); HEMOGLOBIN 7.7 g/dl (12.0-16.0); LYMPHOCYTES # 2.3 10^3/ul (0.8-2.9); LYMPHOCYTES % 25.2 % (15.0-51.0); MEAN CORPUSCULAR HEMOGLOBIN 27.5 pg (29.0-33.0); MEAN CORPUSCULAR VOLUME 88.6 fl (82.0-101.0); MEAN PLATELET VOLUME 8.5 fl (7.4-10.4); MONOCYTE # 0.8 10^3/ul (0.3-0.9); MONOCYTES % 8.2 % (0.0-11.0); NEUTROPHILS % 64.8 % (39.0-77.0); PLATELET COUNT 445 10^3/UL (140-415); RED CELL DISTRIBUTION WIDTH 23.7 % (11.5-14.5); RETICULOCYTE COUNT # 0.102 X10^6 (0.020-0.110); RETICULOCYTE COUNT % 3.6 % (0.5-1.5)
[2018-08-11] MEDS: PANTOPRAZOLE (EC) 40 MG TAB PO (06:14)
[2018-08-11 06:40] LABS: POSITIVE DIFF @See below
[2018-08-11] MEDS: POTASSIUM CHLORIDE (SR) 20 MEQ TAB PO (08:36)
[2018-08-11] MEDS: LISINOPRIL 10 MG TAB PO ×2 (08:36→21:01)
[2018-08-11] MEDS: FERROUS SULFATE (EC) 325 MG TAB PO ×2 (08:36→21:01)
[2018-08-11] MEDS: FUROSEMIDE 20 MG TAB PO (08:36)
[2018-08-11] MEDS: AMOXICILLIN/CLAV 875 MG TAB PO ×2 (08:37→21:01)
[2018-08-11] MEDS: AMLODIPINE 2.5 MG TAB PO (08:37)
[2018-08-11] MEDS: LEVALBUTEROL (NEB) 0.63 MG/3 ML AMP HHN ×3 (08:39→16:36)
[2018-08-11] MEDS: ENOXAPARIN 30 MG/0.3 ML SYG SC (08:42)
[2018-08-11] MEDS: DOCUSATE SODIUM 100 MG CAP PO (21:00)
[2018-08-11] MEDS: ATORVASTATIN 40 MG TAB PO (21:00)
[2018-08-11 22:26] LABS: HEMOGLOBIN 8.9 g/dl (12.0-16.0)
[2018-08-12 05:56] LABS: ADD MAN DIFF? NO
[2018-08-12 06:05] LABS: BASOPHILS % 0.2 % (0.0-2.0); EOSINOPHILS # 0.1 10^3/ul (0.0-0.5); EOSINOPHILS % 0.7 % (0.0-7.0); HEMATOCRIT 30.4 % (37.0-47.0); HEMOGLOBIN 9.5 g/dl (12.0-16.0); LYMPHOCYTES # 2.5 10^3/ul (0.8-2.9); MEAN CORPUSCULAR HEMOGLOBIN 27.8 pg (29.0-33.0); MEAN CORPUSCULAR HGB CONC 31.3 g/dl (32.0-37.0); MEAN CORPUSCULAR VOLUME 88.9 fl (82.0-101.0); MEAN PLATELET VOLUME 8.8 fl (7.4-10.4); MONOCYTE # 0.7 10^3/ul (0.3-0.9); NEUTROPHIL # 6.6 10^3/ul (1.6-7.5); NEUTROPHILS % 66.6 % (39.0-77.0); PLATELET COUNT 455 10^3/UL (140-415); RED BLOOD COUNT 3.42 10^6/ul (4.20-5.40); RED CELL DISTRIBUTION WIDTH 21.8 % (11.5-14.5)
[2018-08-12 06:59] LABS: ANION GAP 10 (5-13); BLOOD UREA NITROGEN 5 mg/dl (7-20); CALCIUM 8.8 mg/dl (8.4-10.2); CARBON DIOXIDE 30 mmol/L (21-31); CHLORIDE 103 mmol/L (97-110); CREATININE 0.65 mg/dl (0.44-1.00); GLUCOSE 94 mg/dl (70-220); POTASSIUM 3.3 mmol/L (3.5-5.1); SODIUM 143 mmol/L (135-144)
[2018-08-12] MEDS: PANTOPRAZOLE (EC) 40 MG TAB PO (07:00)
[2018-08-12] MEDS: LEVALBUTEROL (NEB) 0.63 MG/3 ML AMP HHN ×4 (08:00→23:45)
[2018-08-12] MEDS: POTASSIUM CHLORIDE (SR) 20 MEQ TAB PO ×2 (09:00→18:05)
[2018-08-12] MEDS: AMLODIPINE 2.5 MG TAB PO (09:00)
[2018-08-12] MEDS: AMOXICILLIN/CLAV 875 MG TAB PO ×2 (09:00→20:30)
[2018-08-12] MEDS: LISINOPRIL 10 MG TAB PO ×2 (09:00→20:31)
[2018-08-12] MEDS: FERROUS SULFATE (EC) 325 MG TAB PO ×2 (09:00→20:30)
[2018-08-12] MEDS: FUROSEMIDE 20 MG TAB PO (09:00)
[2018-08-12] MEDS ORDERED: BARIUM SULFATE 135 ML (E-Z HD) PO (12:00)
[2018-08-12 14:05] LABS: IMMEDIATE SPIN CROSSMATCH 1 2
[2018-08-12] MEDS: EPOETIN 10000 UNITS/1 ML INJ (ESRD) SC (18:09)
[2018-08-12 19:26] LABS: BODY FLUID Pleural fluid
[2018-08-12] MEDS: DOCUSATE SODIUM 100 MG CAP PO (20:30)
[2018-08-12] MEDS: ATORVASTATIN 40 MG TAB PO (20:30)
[2018-08-13 05:49] LABS: ADD MAN DIFF? NO
[2018-08-13 05:51] LABS: WHITE BLOOD COUNT 8.9 10^3/ul (4.8-10.8)
[2018-08-13 05:51] LABS: BASOPHILS % 0.3 % (0.0-2.0); EOSINOPHILS % 0.4 % (0.0-7.0); HEMATOCRIT 33.9 % (37.0-47.0); HEMOGLOBIN 10.6 g/dl (12.0-16.0); LYMPHOCYTES # 2.1 10^3/ul (0.8-2.9); LYMPHOCYTES % 23.5 % (15.0-51.0); MEAN CORPUSCULAR HEMOGLOBIN 28.1 pg (29.0-33.0); MEAN CORPUSCULAR HGB CONC 31.3 g/dl (32.0-37.0); MEAN CORPUSCULAR VOLUME 89.9 fl (82.0-101.0); MEAN PLATELET VOLUME 8.6 fl (7.4-10.4); MONOCYTE # 0.6 10^3/ul (0.3-0.9); MONOCYTES % 6.7 % (0.0-11.0); NEUTROPHIL # 6.1 10^3/ul (1.6-7.5); NEUTROPHILS % 68.7 % (39.0-77.0); PLATELET COUNT 392 10^3/UL (140-415); RED BLOOD COUNT 3.77 10^6/ul (4.20-5.40); RED CELL DISTRIBUTION WIDTH 20.3 % (11.5-14.5)
[2018-08-13] MEDS: PANTOPRAZOLE (EC) 40 MG TAB PO (05:58)
[2018-08-13 06:22] LABS: ALANINE AMINOTRANSFERASE 9 IU/L (13-69); ALKALINE PHOSPHATASE 143 IU/L (42-121); ANION GAP 9 (5-13); ASPARTATE AMINO TRANSFERASE 28 IU/L (15-46); BILIRUBIN,INDIRECT 0.1 mg/dl (0-1.1); BILIRUBIN,TOTAL 0.1 mg/dl (0.2-1.3); BLOOD UREA NITROGEN 6 mg/dl (7-20); CARBON DIOXIDE 27 mmol/L (21-31); CHLORIDE 105 mmol/L (97-110); CREATININE 0.58 mg/dl (0.44-1.00); GLUCOSE 94 mg/dl (70-220); MAGNESIUM 1.7 mg/dl (1.7-2.5); POTASSIUM 3.8 mmol/L (3.5-5.1); SODIUM 141 mmol/L (135-144); TOTAL PROTEIN 6.3 g/dl (6.1-8.1)
[2018-08-13] MEDS: LEVALBUTEROL (NEB) 0.63 MG/3 ML AMP HHN ×3 (08:00→23:50)
[2018-08-13] MEDS: FERROUS SULFATE (EC) 325 MG TAB PO ×2 (08:22→21:21)
[2018-08-13] MEDS: POTASSIUM CHLORIDE (SR) 20 MEQ TAB PO (08:22)
[2018-08-13] MEDS: AMOXICILLIN/CLAV 875 MG TAB PO ×2 (08:22→21:21)
[2018-08-13] MEDS: AMLODIPINE 5 MG TAB PO (08:23)
[2018-08-13] MEDS: FUROSEMIDE 20 MG TAB PO (08:23)
[2018-08-13] MEDS: LISINOPRIL 20 MG TAB PO (08:24)
[2018-08-13] MEDS: METOCLOPRAMIDE 10 MG INJ IV (15:17)
[2018-08-13] MEDS: DOCUSATE SODIUM 100 MG CAP PO (21:22)
[2018-08-13] MEDS: ATORVASTATIN 40 MG TAB PO (21:22)
[2018-08-14] MEDS: PANTOPRAZOLE (EC) 40 MG TAB PO (05:52)
[2018-08-14] MEDS: LEVALBUTEROL (NEB) 0.63 MG/3 ML AMP HHN (08:52)
[2018-08-14] MEDS: AMLODIPINE 5 MG TAB PO (09:00)
[2018-08-14] MEDS: POTASSIUM CHLORIDE (SR) 20 MEQ TAB PO (09:00)
[2018-08-14] MEDS: LISINOPRIL 20 MG TAB PO (09:00)
[2018-08-14] MEDS: FUROSEMIDE 20 MG TAB PO (09:00)
[2018-08-14] MEDS: AMOXICILLIN/CLAV 875 MG TAB PO (09:00)
[2018-08-14] MEDS: FERROUS SULFATE (EC) 325 MG TAB PO (09:00)
[2018-08-14] MEDS: METOCLOPRAMIDE 10 MG INJ IV (11:57)
[2018-08-14] MEDS ORDERED: LIDOCAINE 4% SOLUTION 50 ML BTL (12:40)
[2018-08-14] MEDS ORDERED: MIDAZOLAM 1 MG/ML 2 ML INJ (14:50)
[2018-08-14] MEDS ORDERED: FENTAnyl 50 MCG/ML VIAL (14:51)
== END 2018-08-14 17:10 | disposition home health service (06) | DRG 193 ==
LOC: 2NE 08-06 11:50
PROVIDERS: Internal Medicine
PROC: 0DB68ZX Excision of Stomach, Via Natural or Artificial Opening Endoscopic, Diagnostic (ICD-10-PCS; 2018-08-14 11:30)
PROC: 0W993ZX Drainage of Right Pleural Cavity, Percutaneous Approach, Diagnostic (ICD-10-PCS; principal; 2018-08-14 12:26)
PROC: 30233N1 Transfusion of Nonautologous Red Blood Cells into Peripheral Vein, Percutaneous Approach (ICD-10-PCS; 2018-08-14 12:26)
DX: J18.9 Pneumonia, unspecified organism (principal); J85.0 Gangrene and necrosis of lung; N17.9 Acute kidney failure, unspecified; J90 Pleural effusion, not elsewhere classified; K92.2 Gastrointestinal hemorrhage, unspecified; D50.0 Iron deficiency anemia secondary to blood loss (chronic); I11.0 Hypertensive heart disease with heart failure; I50.9 Heart failure, unspecified; E86.0 Dehydration; K20.9 Esophagitis, unspecified; I25.10 Atherosclerotic heart disease of native coronary artery without angina pectoris; Z87.891 Personal history of nicotine dependence; E87.6 Hypokalemia; K29.50 Unspecified chronic gastritis without bleeding; K44.9 Diaphragmatic hernia without obstruction or gangrene; R79.1 Abnormal coagulation profile; Z95.5 Presence of coronary angioplasty implant and graft; R76.0 Raised antibody titer
CPT/HCPCS: 32555; 36430; 71045; 71260; 74240; 74250; 76604; 80048; 80053; 81001; 82270; 82668; 82728; 82945; 83540; 83615; 83735; 83986; 84132; 84145; 84157; 85014; 85018; 85025; 85045; 85335; 85610; 85613; 85651; 85730; 86038; 86147; 86480; 86635; 86850; 86900; 86901; 86920; 87040; 87070; 87081; 87086; 87102; 87116; 88104; 88305; 88312; 89051; 94640; 94664; 97110; 97116; 97162; 97530

== ENCOUNTER → 2018-09-01 | Outpatient (CLI) | payer MEDICARE, OTHER | END | disposition home or self-care (01) | LOC: LAB 11:27 | DX: J85.1 Abscess of lung with pneumonia (principal); R52 Pain, unspecified | CPT/HCPCS: 71046 ==

== ENCOUNTER 2018-11-06 08:33 | Day surgery (SDC) | payer MEDICARE, OTHER ==
[2018-11-06] MEDS ORDERED: FENTAnyl 50 MCG/ML VIAL (11:00)
[2018-11-06] MEDS ORDERED: ETOMIDATE 20 MG INJ (11:00)
[2018-11-06] MEDS ORDERED: ONDANSETRON 4 MG INJ IV (11:30)
== END 2018-11-06 11:56 | disposition home or self-care (01) ==
LOC: GIL 08:33
DX: K44.9 Diaphragmatic hernia without obstruction or gangrene (principal); K21.0 Gastro-esophageal reflux disease with esophagitis; I25.10 Atherosclerotic heart disease of native coronary artery without angina pectoris; I10 Essential (primary) hypertension; E78.5 Hyperlipidemia, unspecified
CPT/HCPCS: 43239; 88305; 88312; 88313